=== PATIENT | female | born 2000 | race Caucasian/White ===

== ENCOUNTER 2022-02-22 21:41 | Inpatient (IN) ==
--- NOTE | 2022-02-22 21:47 | ED Triage Note ---
Date of Service February 22, 2022 History of Present Illness This patient was briefly evaluated while in triage. An abbreviated physical exam was performed. This patient is a 22-year-old Female with no significant past medical history who presents to the ED for evaluation of headache since Tuesday with N/V. No history of similar symptoms or migraines. Was drinking alcohol over the weekend. No trauma that she is aware of. Physical Exam VITALS: Vitals are noted on the nurse's note and reviewed by myself. GENERAL: This is a 22 year old white female, in no acute distress, nondiaphoretic, well-developed well-nourished. SKIN: No obvious rashes, edema, erythema HEAD: Normocephalic atraumatic. EYES: Conjunctivae without injection, sclerae without icterus. NECK: No JVD. LUNGS: No retractions or accessory muscle use. MUSCULOSKELETAL: Normal gait. NEURO: Patient was alert and oriented to person place and time. No focal neurological deficits. Initial orders for labs and / or imaging were placed and patient was placed in the waiting area until a bed is available. Please see further documentation for the full ED course.
[2022-02-22] MEDS ORDERED: SODIUM CHLORIDE 0.9% 1000ML 1,000 ML IV SCH (22:00)
[2022-02-22 22:23] LABS: Hemoglobin 14.4 g/dl (12.0-16.0); Mean Corpuscular Hemoglobin 29.5 pg (25.0-34.0); Mean Corpuscular Hgb Conc 33.5 g/dL (32.0-36.0); Mean Corpuscular Volume 88.1 fL (80.0-100.0); Mean Platelet Volume 9.3 fL (9.4-12.3); Platelet Count 430 K/uL (130-400); RDW Coefficient of Variation 12.3 % (11.5-14.5); RDW Standard Deviation 40.2 fL (36.4-46.3); Red Blood Count 4.88 M/uL (3.93-5.22); White Blood Count 25.38 K/ul (4.8-10.8)
[2022-02-22 22:37] LABS: INR 1.1 (0.9-1.1); Partial Thromboplastin Time 26.5 Seconds (21.0-31.0); Prothrombin Time 11.6 Seconds (9.0-12.0)
[2022-02-22 22:39] LABS: Basophils # (auto) 0.08 K/uL (0-0.2); Basophils % (auto) 0.3 %; Eosinophils # (auto) 0.04 K/uL (0-0.50); Eosinophils % (auto) 0.2 %; Immature Granulocytes # (auto) 0.12 K/uL (0.00-0.02); Immature Granulocytes % (auto) 0.5 %; Lymphocytes # (auto) 3.14 K/uL (1.2-3.4); Lymphocytes % (auto) 12.4 %; Monocytes # (auto) 1.89 K/uL (0.24-0.82); Monocytes % (auto) 7.4 %; Neutrophils # (auto) 20.11 K/uL (1.4-6.5); Neutrophils % (auto) 79.2 %
[2022-02-22 22:44] LABS: Albumin Globulin Ratio 1.2 (0.9-2); Albumin Level 4.5 gm/dl (3.4-5.0); BUN Creatinine Ratio 15.8 (10-20); Bilirubin,Total 0.8 mg/dl (0.2-1.0); Calcium 9.9 mg/dl (8.5-10.1); Creatinine Clr Calc Pharmacy 163.2 ml/min; Est GFR (African American) 129.1 ml/min; Est GFR (Non-African American) 111.3 ml/min; Globulin 3.9 gm/dl (2.5-4.0); Potassium 3.7 mmol/L (3.5-5.1); Total Protein 8.4 gm/dl (6.0-8.3)
[2022-02-22 22:53] LABS: Pregnancy Test, Serum Negative (Negative)
[2022-02-22] MEDS ORDERED: ONDANSETRON INJ 2 MG/ML 2 ML VIAL IV STA (23:03)
[2022-02-22] MEDS ORDERED: ONDANSETRON INJ 2 MG/ML 2 ML VIAL ONE (23:04)
[2022-02-23] MEDS ORDERED: diphenhydrAMINE 50 MG/ML VIAL IV STA (00:12)
[2022-02-23] MEDS ORDERED: METOCLOPRAMIDE HCL INJ 5 MG/ML 2 ML VIAL IV STA (00:12)
[2022-02-23] MEDS ORDERED: SODIUM CHLORIDE 0.9% 1000ML 500 ML IV ONE (00:13)
--- NOTE | 2022-02-23 00:14 | Emergency Department Note ---
Impression & Plan Headache ADMIT ED Provider Note HPI: The patient is a 22-year-old female with history of migraine headaches, who presents the emergency department chief complaint of headache. Patient states that she has had a headache since Tuesday morning, patient does admit to drinking alcohol Tuesday evening however she states that her headache pattern was unlike any that she had experienced previously. Patient states that she has had multiple episodes of vomiting over the past several days that seem to be intractable in nature. She states that she also developed a posterior headache today. On arrival here to the ED the patient is hemodynamically stable, she is afebrile, she is in mild distress secondary to headache and nausea on my initial assessment. She is alert and oriented x3 and she is saturating well on room air. ROS: -Neuro: Headache -GI: Nausea and vomiting *10 point review systems was conducted and is otherwise negative unless stated above *Outpatient medications and allergy history reviewed PE: General: Alert, obese HEENT: Normocephalic, atraumatic Eyes: Extraocular eye movement is intact, no scleral erythema Pulmonary: Clear to auscultation bilaterally, no wheezing Cardio: Regular rate and rhythm GI: Abdomen is soft, nontender : No suprapubic tenderness MSK: No evidence of trauma or malformation of the extremities, no edema Skin: No evidence of rash Neuro: Alert, no focal deficits Psychiatric: Cooperative ekg monitor: - An order was placed for continuous cardiac monitoring - Patient was noted to be in sinus rhythm with a rate of 80 CT HEAD: FINDINGS: No intracranial hemorrhage, abnormal intra- or extra-axial collections or parenchymal lesions are seen. The shape and configuration of the cortical sul ci, basal cisterns and ventricles are within normal limits. The michele-white differentiation is preserved. No evidence of mass effect, midline shift, or edema. The osseous structures are unremarkable. The visualized portions of the paranasal sinuses are clear. IMPRESSION: Normal non-contrast CT scan of the head. Radiologist: Ronnie Oliva MD Lumbar Puncture: -Verbal consent was obtained from the patient -Sterile technique utilized including gown, mask, and sterile gloves -Patient was placed in a seated position at the edge of the bed -L4/L5 interspace was identified, area was sterilely prepped with Betadine swabs, area was then draped in sterile fashion -Area at the L4/L5 interspace was anesthetized topically with 1% lidocaine without epinephrine, total of 5 cc were administered -Utilizing 20-gauge 3.5" needle, needle was gently advanced at the L4/L5 interspace, needle was retracted and clear CSF was obtained -4 tubes were filled with approximately 1 cc of CSF each, stylette was then placed back into the needle and needle was slowly retracted and removed entirely -Band-Aid was placed over the patient's wound, patient tolerated the procedure well Medical Decision Making: Shortly after patient arrived, protocol labs were ordered, patient was given IV fluids, lab work was reviewed and shows a significant leukocytosis greater than 25,000, blood cultures were ordered, patient was given IV fluids here in the ED as well as Reglan and Benadryl for headache. I did discuss with the patient following negative CT imaging of the head that lumbar puncture would be indicated given her significant leukocytosis with headache as well as nausea and vomiting. Patient was in agreement for lumbar puncture therefore this was performed at the bedside, CSF was obtained and sent for analysis, there is evidence of high white blood cell count, protein is also high, glucose is noted to be normal. Gram stain shows white blood cells but no identified organism. Meningitis PCR panel is largely negative. On my reassessment the patient continued to complain of headache therefore was given a dose of IV morphine, I did discuss with the patient that given her CSF findings prophylactic antibiotics would be ordered in addition to dexamethasone over concern for bacterial meningitis. Patient was started on ceftriaxone and vancomycin, she was given additional IV fluids here in the ED as well as pain medication. She remains alert and oriented x3 on my reevaluation but does appear to be uncomfortable still secondary to headache. Of note, COVID-19 testing was obtained and is negative. [facility] hospitalist service was consulted for admission, and the patient was admitted in stable condition for further care. Diagnosis: 1. Headache, acute 2. Nausea and vomiting 3. Leukocytosis 4. Abnormal CSF analysis Disposition: Admission Humberto Sumner DO Emergency Medicine Past Med/Surg History Medical History (Updated 02/23/22 @ 03:36 by Humberto Sumner DO) Migraines Social History Smoking Status: Never smoker Feels Safe at Home: Yes Allergies Allergies Allergy/AdvReac Type Severity Reaction Status Date / Time No Known Allergies Allergy Unverified 03/23/19 12:36 Results & Data (ED) Vital Signs Vital Signs - 24 hr 02/22/22 21:46 02/22/22 23:07 02/22/22 23:51 Temperature 36.2 C L Temperature Source Temporal Artery Scan Pulse Rate 88 87 Pulse Rate [Right Finger] 80 Pulse Rhythm Regular Pulse Rhythm [Right Finger] Pulse Strength [Right Finger] Respiratory Rate 16 20 16 Respiratory Effort / Characteristics Respiratory Depth Respiratory Pattern Blood Pressure 141/95 H Blood Pressure [Right Arm] 118/72 Blood Pressure Mean 110 Blood Pressure Mean [Right Arm] 87 Blood Pressure Position [Right Arm] Right Lateral Pulse Oximetry 99 98 98 Oxygen Delivery Method Room Air Room Air Sepsis Recent Fever Within 48 Hours No Sepsis New/Unexplained Change in Mental Status No Sepsis Action Taken by Nursing No Action Required 02/23/22 01:00 02/23/22 02:00 02/23/22 02:34 Temperature 36.9 C 37.0 C Temperature Source Oral Oral Pulse Rate Pulse Rate [Right Finger] 88 84 84 Pulse Rhythm Pulse Rhythm [Right Finger] Regular Regular Regular Pulse Strength [Right Finger] Normal Normal Normal Respiratory Rate 16 16 16 Respiratory Effort / Characteristics Non-Labored Respiratory Depth Normal Normal Respiratory Pattern Blood Pressure Blood Pressure [Right Arm] 121/73 136/81 131/74 Blood Pressure Mean Blood Pressure Mean [Right Arm] 89 99 93 Blood Pressure Position [Right Arm] Pulse Oximetry 99 98 Oxygen Delivery Method Room Air Room Air Sepsis Recent Fever Within 48 Hours Sepsis New/Unexplained Change in Mental Status Sepsis Action Taken by Nursing 02/23/22 03:23 Temperature Temperature Source Pulse Rate Pulse Rate [Right Finger] 84 Pulse Rhythm Pulse Rhythm [Right Finger] Regular Pulse Strength [Right Finger] Respiratory Rate 16 Respiratory Effort / Characteristics Non-Labored Respiratory Depth Normal Respiratory Pattern Regular Blood Pressure Blood Pressure [Right Arm] 126/66 Blood Pressure Mean Blood Pressure Mean [Right Arm] 86 Blood Pressure Position [Right Arm] Pulse Oximetry 96 Oxygen Delivery Method Room Air Sepsis Recent Fever Within 48 Hours Sepsis New/Unexplained Change in Mental Status Sepsis Action Taken by Nursing Laboratory Data Result diagrams: 02/22/22 22:13 02/22/22 22:13 Lab Results 02/22/22 02/22/22 02/22/22 Range/Units 22:13 22:13 22:13 WBC 25.38 H (4.8-10.8) K/ul RBC 4.88 (3.93-5.22) M/uL Hgb 14.4 (12.0-16.0) g/dl Hct 43.0 (34.1-44.9) % MCV 88.1 (80.0-100.0) fL MCH 29.5 (25.0-34.0) pg MCHC 33.5 (32.0-36.0) g/dL RDW Std Deviation 40.2 (36.4-46.3) fL RDW Coeff of Hilaria 12.3 (11.5-14.5) % Plt Count 430 H (130-400) K/uL MPV 9.3 L (9.4-12.3) fL Immature Gran % (Auto) 0.5 % Neut % (Auto) 79.2 % Lymph % (Auto) 12.4 % [place] % (Auto) 7.4 % Eos % (Auto) 0.2 % Baso % (Auto) 0.3 % Neut # (Auto) 20.11 H (1.4-6.5) K/uL Lymph # (Auto) 3.14 (1.2-3.4) K/uL [place] # (Auto) 1.89 H (0.24-0.82) K/uL Eos # (Auto) 0.04 (0-0.50) K/uL Baso # (Auto) 0.08 (0-0.2) K/uL Immature Gran # (Auto) 0.12 H (0.00-0.02) K/uL PT 11.6 (9.0-12.0) Seconds INR 1.1 (0.9-1.1) APTT 26.5 (21.0-31.0) Seconds PTT Ratio 1.0 Sodium 136 (136-145) mmol/L Potassium 3.7 (3.5-5.1) mmol/L Chloride 101 (98-107) mmol/L Carbon Dioxide 27 (21-32) mmol/L Anion Gap 8 (3-11) BUN 12 (6-23) mg/dl Creatinine 0.76 (0.6-1.2) mg/dl Est Cr Clr Drug Dosing 163.2 ml/min Est GFR ( Amer) 129.1 ml/min Est GFR (Non-Af Amer) 111.3 ml/min BUN/Creatinine Ratio 15.8 (10-20) Glucose 109 H (70-99(Fasting)) mg/dl Calcium 9.9 (8.5-10.1) mg/dl Total Bilirubin 0.8 (0.2-1.0) mg/dl AST 12 L (13-39) U/L ALT 13 (7-52) U/L Alkaline Phosphatase 98 (34-104) U/L Total Protein 8.4 H (6.0-8.3) gm/dl Albumin 4.5 (3.4-5.0) gm/dl Globulin 3.9 (2.5-4.0) gm/dl Albumin/Globulin Ratio 1.2 (0.9-2) HCG, Qual (Negative) Fluid Comment CSF Appearance CSF Color Xanthrochromic CSF WBC (0-5) /uL CSF RBC (0-) /uL CSF Cell Count Tube # CSF Mononuclear WBCs % % CSF Polynuclear WBCs % % CSF Chemistry Tube # CSF Glucose (40-70) mg/dl CSF Total Protein (15-45) mg/dl CSF C.neoform/gat PCR (NotDetected) CSF CMV DNA (PCR) (NotDetected) CSF Enterovirus (PCR) (NotDetected) CSF E. coli K1 (PCR) (NotDetected) CSF H. influenzae (PCR) (NotDetected) CSF HSV I (PCR) (NotDetected) CSF HSV II (PCR) (NotDetected) CSF HHV 6 (PCR) (NotDetected) CSF L.monocytogenes PCR (NotDetected) CSF N. meningitidis PCR (NotDetected) CSF Parechovirus (PCR) (NotDetected) CSF S. agalactiae (PCR) (NotDetected) CSF S. pneumoniae (PCR) (NotDetected) CSF VZV DNA (PCR) (NotDetected) SARS-CoV-2 (PCR) (Negative) Influenza Type A (PCR) (Neg) Influenza Type B (PCR) (Neg) RSV (RT-PCR) (Neg) 02/22/22 02/23/22 02/23/22 Range/Units 22:13 01:00 01:00 WBC (4.8-10.8) K/ul RBC (3.93-5.22) M/uL Hgb (12.0-16.0) g/dl Hct (34.1-44.9) % MCV (80.0-100.0) fL MCH (25.0-34.0) pg MCHC (32.0-36.0) g/dL RDW Std Deviation (36.4-46.3) fL RDW Coeff of Hilaria (11.5-14.5) % Plt Count (130-400) K/uL MPV (9.4-12.3) fL Immature Gran % (Auto) % Neut % (Auto) % Lymph % (Auto) % [place] % (Auto) % Eos % (Auto) % Baso % (Auto) % Neut # (Auto) (1.4-6.5) K/uL Lymph # (Auto) (1.2-3.4) K/uL [place] # (Auto) (0.24-0.82) K/uL Eos # (Auto) (0-0.50) K/uL Baso # (Auto) (0-0.2) K/uL Immature Gran # (Auto) (0.00-0.02) K/uL PT (9.0-12.0) Seconds INR (0.9-1.1) APTT (21.0-31.0) Seconds PTT Ratio Sodium (136-145) mmol/L Potassium (3.5-5.1) mmol/L Chloride (98-107) mmol/L Carbon Dioxide (21-32) mmol/L Anion Gap (3-11) BUN (6-23) mg/dl Creatinine (0.6-1.2) mg/dl Est Cr Clr Drug Dosing ml/min Est GFR ( Amer) ml/min Est GFR (Non-Af Amer) ml/min BUN/Creatinine Ratio (10-20) Glucose (70-99(Fasting)) mg/dl Calcium (8.5-10.1) mg/dl Total Bilirubin (0.2-1.0) mg/dl AST (13-39) U/L ALT (7-52) U/L Alkaline Phosphatase (34-104) U/L Total Protein (6.0-8.3) gm/dl Albumin (3.4-5.0) gm/dl Globulin (2.5-4.0) gm/dl Albumin/Globulin Ratio (0.9-2) HCG, Qual Negative (Negative) Fluid Comment CSF Appearance CSF Color Xanthrochromic CSF WBC (0-5) /uL CSF RBC (0-) /uL CSF Cell Count Tube # CSF Mononuclear WBCs % % CSF Polynuclear WBCs % % CSF Chemistry Tube # 1 CSF Glucose 66 (40-70) mg/dl CSF Total Protein 66.3 H (15-45) mg/dl CSF C.neoform/gat PCR Not Detected (NotDetected) CSF CMV DNA (PCR) Not Detected (NotDetected) CSF Enterovirus (PCR) Not Detected (NotDetected) CSF E. coli K1 (PCR) Not Detected (NotDetected) CSF H. influenzae (PCR) Not Detected (NotDetected) CSF HSV I (PCR) Not Detected (NotDetected) CSF HSV II (PCR) Not Detected (NotDetected) CSF HHV 6 (PCR) Not Detected (NotDetected) CSF L.monocytogenes PCR Not Detected (NotDetected) CSF N. meningitidis PCR Not Detected (NotDetected) CSF Parechovirus (PCR) Not Detected (NotDetected) CSF S. agalactiae (PCR) Not Detected (NotDetected) CSF S. pneumoniae (PCR) Not Detected (NotDetected) CSF VZV DNA (PCR) Not Detected (NotDetected) SARS-CoV-2 (PCR) (Negative) Influenza Type A (PCR) (Neg) Influenza Type B (PCR) (Neg) RSV (RT-PCR) (Neg) 02/23/22 02/23/22 Range/Units 01:00 Unknown WBC (4.8-10.8) K/ul RBC (3.93-5.22) M/uL Hgb (12.0-16.0) g/dl Hct (34.1-44.9) % MCV (80.0-100.0) fL MCH (25.0-34.0) pg MCHC (32.0-36.0) g/dL RDW Std Deviation (36.4-46.3) fL RDW Coeff of Hilaria (11.5-14.5) % Plt Count (130-400) K/uL MPV (9.4-12.3) fL Immature Gran % (Auto) % Neut % (Auto) % Lymph % (Auto) % [place] % (Auto) % Eos % (Auto) % Baso % (Auto) % Neut # (Auto) (1.4-6.5) K/uL Lymph # (Auto) (1.2-3.4) K/uL [place] # (Auto) (0.24-0.82) K/uL Eos # (Auto) (0-0.50) K/uL Baso # (Auto) (0-0.2) K/uL Immature Gran # (Auto) (0.00-0.02) K/uL PT (9.0-12.0) Seconds INR (0.9-1.1) APTT (21.0-31.0) Seconds PTT Ratio Sodium (136-145) mmol/L Potassium (3.5-5.1) mmol/L Chloride (98-107) mmol/L Carbon Dioxide (21-32) mmol/L Anion Gap (3-11) BUN (6-23) mg/dl Creatinine (0.6-1.2) mg/dl Est Cr Clr Drug Dosing ml/min Est GFR ( Amer) ml/min Est GFR (Non-Af Amer) ml/min BUN/Creatinine Ratio (10-20) Glucose (70-99(Fasting)) mg/dl Calcium (8.5-10.1) mg/dl Total Bilirubin (0.2-1.0) mg/dl AST (13-39) U/L ALT (7-52) U/L Alkaline Phosphatase (34-104) U/L Total Protein (6.0-8.3) gm/dl Albumin (3.4-5.0) gm/dl Globulin (2.5-4.0) gm/dl Albumin/Globulin Ratio (0.9-2) HCG, Qual (Negative) Fluid Comment CSF Appearance Clear CSF Color Colorless Xanthrochromic No xanthochromia CSF WBC 150 H* (0-5) /uL CSF RBC 0 (0-) /uL CSF Cell Count Tube # 3 CSF Mononuclear WBCs % 40.0 % CSF Polynuclear WBCs % 60.0 % CSF Chemistry Tube # CSF Glucose (40-70) mg/dl CSF Total Protein (15-45) mg/dl CSF C.neoform/gat PCR (NotDetected) CSF CMV DNA (PCR) (NotDetected) CSF Enterovirus (PCR) (NotDetected) CSF E. coli K1 (PCR) (NotDetected) CSF H. influenzae (PCR) (NotDetected) CSF HSV I (PCR) (NotDetected) CSF HSV II (PCR) (NotDetected) CSF HHV 6 (PCR) (NotDetected) CSF L.monocytogenes PCR (NotDetected) CSF N. meningitidis PCR (NotDetected) CSF Parechovirus (PCR) (NotDetected) CSF S. agalactiae (PCR) (NotDetected) CSF S. pneumoniae (PCR) (NotDetected) CSF VZV DNA (PCR) (NotDetected) SARS-CoV-2 (PCR) NEGATIVE (Negative) Influenza Type A (PCR) Negative (Neg) Influenza Type B (PCR) Negative (Neg) RSV (RT-PCR) Negative (Neg) Administered Medications Discontinued Medications Dexamethasone Sodium Phosphate (DexamethasonePf 10 Mg/Ml Vial) 10 mg IV NOW ONE Stop: 02/23/22 02:49 Last Admin: 02/23/22 03:14 Dose: 10 mg Documented By: JEOVANY Diphenhydramine HCl (Diphenhydramine 50 Mg/Ml Vial) 25 mg IV NOW STA Stop: 02/23/22 00:13 Last Admin: 02/23/22 00:28 Dose: 25 mg Documented By: JEOVANY Sodium Chloride (Nss 1000ml) 1,000 mls @ 999 mls/hr IV .Q1H1M STEPHANI Stop: 02/22/22 23:00 Last Infusion: 02/23/22 02:12 Dose: 0 mls/hr Documented By: Admin: 02/22/22 22:55 Dose: 999 mls/hr Documented By: SAGAR Sodium Chloride (Nss 1000ml) 500 mls @ 999 mls/hr IV .Q31M ONE Stop: 02/23/22 00:43 Last Infusion: 02/23/22 02:12 Dose: 0 mls/hr Documented By: Admin: 02/23/22 00:30 Dose: 999 mls/hr Documented By: JEOVANY Ceftriaxone Sodium (Rocephin) 2,000 mg in 70 mls @ 140 mls/hr IV NOW STA Stop: 02/23/22 03:14 Last Admin: 02/23/22 02:56 Dose: 140 mls/hr Documented By: JEOVANY Lidocaine HCl (Lidocaine 1% Local 20 Ml Vial) Confirm Administered Dose 20 ml .ROUTE .STK-MED ONE Stop: 02/23/22 00:54 Last Admin: 02/23/22 01:49 Dose: 20 ml Documented By: JEOVANY Lorazepam (Lorazepam 2 Mg/1 Ml Vial) 1 mg IV NOW STA; Protocol Stop: 02/23/22 00:33 Last Admin: 02/23/22 00:36 Dose: 1 mg Documented By: JEOVANY Lorazepam (Lorazepam 2 Mg/1 Ml Vial) Confirm Administered Dose 1 mg .ROUTE .STK- MED ONE Stop: 02/23/22 00:34 Last Admin: 02/23/22 01:49 Dose: Not Given Documented By: JEOVANY Metoclopramide HCl (Metoclopramide Hcl Inj 5 Mg/Ml 2 Ml Vial) 10 mg IV NOW STA Stop: 02/23/22 00:13 Last Admin: 02/23/22 00:28 Dose: 10 mg Documented By: JEOVANY Ondansetron HCl (Ondansetron Inj 2 Mg/Ml 2 Ml Vial) 4 mg IV NOW STA Stop: 02/22/22 23:04 Last Admin: 02/22/22 23:07 Dose: 4 mg Documented By: SAGAR Ondansetron HCl (Ondansetron Inj 2 Mg/Ml 2 Ml Vial) Confirm Administered Dose 4 mg .ROUTE .STK-MED ONE Stop: 02/22/22 23:05 Last Admin: 02/22/22 23:07 Dose: Not Given Documented By: SAGAR Discharge Plan Visit Data Chief Complaint: Headache Stated Complaint: MIGRAINE, VOMITING, DIZZINESS, VISION ISSUES ED Provider: Humberto Sumner Discharge Problem: Headache Patient Disposition: Admitted As Inpatient Condition: Good Forms Stand Alone Forms: [facility] Emergency Department, Important Visit Information Referrals Referrals: PCP,NO [Primary Care Provider] -
[2022-02-23] MEDS ORDERED: LORazepam 2 MG/2 ML SYR IV STA (00:32)
[2022-02-23] MEDS ORDERED: LORazepam 2 MG/2 ML SYR ONE (00:33)
[2022-02-23] MEDS ORDERED: LIDOCAINE 1% LOCAL 20 ML VIAL ONE (00:53)
[2022-02-23 01:05] LABS: Influenza A virus by PCR Negative (Neg); Influenza B virus by PCR Negative (Neg); RSV by PCR Negative (Neg); SARS CoV2 RNA(COVID-19) InHosp NEGATIVE (Negative)
[2022-02-23 02:05] LABS: Total Protein CSF 66.3 mg/dl (15-45)
[2022-02-23 02:20] LABS: Appearance CSF Clear; CSF Count Tube # 3; Color CSF Colorless
[2022-02-23 02:21] LABS: CSF Xanthrochromic No xanthochromia; Red Blood Cell CSF (A) 0 /uL (0-)
[2022-02-23 02:22] LABS: White Blood Cell CSF (A) 150 /uL (0-5)
[2022-02-23] MEDS ORDERED: VANCOMYCIN HCL 2,500 MG in SODIUM CHLORIDE 0.9% 500 ML IV ONE (02:45)
[2022-02-23] MEDS ORDERED: VANCOMYCIN CONSULT ACTIVE PRN (02:45)
[2022-02-23] MEDS ORDERED: cefTRIAXone SODIUM 2,000 MG/70 ML BAG IV STA (02:45)
[2022-02-23] MEDS ORDERED: dexAMETHasone**PF** 10 MG/ML VIAL IV ONE (02:48)
[2022-02-23 03:16] LABS: Cryptococcus neoformans/ga PCR Not Detected (NotDetected); Cytomegalovirus PCR Not Detected (NotDetected); Enterovirus PCR Not Detected (NotDetected); Escherichia coli K1 PCR Not Detected (NotDetected); Haemophilius influenzae PCR Not Detected (NotDetected); Herpes Simplex Virus 1 PCR Not Detected (NotDetected); Herpes Simplex Virus 2 PCR Not Detected (NotDetected); Human Herpes Virus 6 PCR Not Detected (NotDetected); Human Parechovirus PCR Not Detected (NotDetected); Listeria monocytogenes PCR Not Detected (NotDetected); Neisseria meningitidis PCR Not Detected (NotDetected); Streptococcus agalactiae PCR Not Detected (NotDetected); Streptococcus pneumoniae PCR Not Detected (NotDetected); Varicella Zoster Virus PCR Not Detected (NotDetected)
[2022-02-23] MEDS ORDERED: MoRPHine SULFATE 4 MG/ML 1 ML CARP\\VIAL IV STA (03:23)
--- NOTE | 2022-02-23 03:49 | History & Physical Report ---
Date of Service February 23, 2022 Assessment & Plan (1) Headache: Plan: This is a 22-year-old female with a history of who presented to [facility] for evaluation of severe headache, nuchal rigidity, recurrent nausea with vomiting, and chills in the setting of recently reported sinus infection, with serum and CSF studies concerning for aseptic meningitis. Suspected Meningitis - Patient reporting approx. 3 days worth of worsening severe headache with intractable nausea and vomiting, nuchal rigidity, and chills following a recent self-reported sinus infection - Work-up as follows: - Leukocytosis to 25 with L shift and monocytosis - CSF: Clear/Colorless/WBC 150 (40/60 mono:PMNs)/Glc nml 66/TP 66.3/BioFire negative (Lyme studies pending) - COVID/RSV/Influenza: Negative - Head CT (STAT-Rad): No acute processes - await final read - BCX, CSF-Cx, Procal - pending - Patient reports negative STI panel at [facility]; she will look into getting files on her phone - Clinical picture is concerning and most consistent with aseptic meningitis - likely viral in nature. No recent symptoms to suggest rheumatologic, medication- induced, parameningeal alternative source -- though noted patient had similar episode of this last year. Given serologies, lower suspicion for migraine headache as central etiology, but considered. Dural venous sinus thrombosis considered given IUD, though seems less likely. - Given clinical appearance and significant symptoms, however: - Will empirically cover bacterial with CFTX, vancomycin, dexamethasone 10mg q6h for now - Continue acyclovir for now - Await CSF-Cx, BCx as above - Pain: Tylenol 1000mg q8h STEPHANI, Toradol 16mg q6h PRN, diphenhydramine 25mg PRN (headache pain) - Nausea: Zofran - can consider Compazine - NSS x 1L - Consider further imaging (MRI, MRV) and rheumatologic testing if clinical picture remains unclear (2) Alcohol use: Plan: - Will require further history and possibly counselling on decreasing intake given heavy use over last several days (3) Tobacco use: Plan: - Vaping cessation counselling will be required once acute issues are resolved Plan Code: Full Diet: Regular as tolerated PPX: SCDs Dispo: MS for now - upgrade to MS/T+ if clinical status is worsening History of Present Illness Primary Care Provider: NO PCP This is a 22-year-old female with a history of who presented to [facility] for evaluation of headache and nausea. Patient reports that last week, she did have sinus symptoms that were primarily tender on the left sideshe reports having these every single year, and they typically resolve on their own. Patient reports that beginning on Tuesday of last week (~4 days ago) she went out downtown and consumed a significant amount of alcohol. The following day, she reports consuming consistent amounts of alcohol for about a 12-hour period, but she notes that she did not get intoxicated. The following morning (2 days ago) she reports waking up with a pounding, sharp headache that extended from the front to the back of her head and down her neck. She says she has had 1 headache like this in the past, but never this severe. As the day went on, she progressively began developing worsening nausea with vomiting. She felt like she was unable to keep anything down. She denies any diplopia or visual symptoms. She denies any numbness or tingling's in her upper or lower extremities, denies any weakness. She did try taking Tylenol and acetaminophen without any relief. Because her symptoms continued onward through today, she did decide to come into the ER to be evaluated. She does report intermittent chills over the last couple days, but denies any objective fevers. She denies any muscle aches. She denies any medical conditions. She denies any daily medications. She does have a Kyleena IUD. She is sexually active and endorses a history of Chlamydia infection treated last year. She said she was tested for all STIs, including blood tests, a month ago at [facility]. She has no partners since. Denies genital lesions. She does endorse vaping frequently. Alcohol use as above. Denies any use of recreational drugs. Upon arrival, patient was found to be mildly hypertensive to 141/95 with otherwise normal vital signs. Admission labs demonstrated a white count to 25.4 with appreciable left shift and mild monocytosis, thrombocytosis 430, normal BMP, total protein 8.4. CT-Head STAT-Rad: "Normal non-contrast CT scan of the head." Given ongoing concerns for meningitis, CSF sample was obtained. CSF was clear and colorless without xanthochromia. Leukocytosis to 150 with 40/60 mononuclear:PMN differentiation was found in the CSF with normal glucose. Total protein elevated 66.3. CSF bio fire was negative. CSF Lyme studies are pending. Patient's respiratory swabs revealed negative COVID, influenza, and RSV. Blood cultures and CSF cultures are pending. She was given sodium chloride, obtain sertraline, metoclopramide, diphenhydramine, lorazepam, ceftriaxone, dexamethasone, morphine, and vancomycin. Allergies Allergy/AdvReac Type Severity Reaction Status Date / Time No Known Allergies Allergy Unverified 02/23/22 15:12 Home Medications Medication Instructions Recorded Confirmed Type No Known Home Medications 02/23/22 02/23/22 History Past Med/Surg History Medical History (Updated 02/23/22 @ 03:36 by Humberto Sumner DO) Migraines Social History Smoking Status: Never smoker Second Hand Exposure: No; Do You Dip or Chew Tobacco: No; Tobacco Cessation Education Requested by Patient: No Hx Alcohol Use: Yes Alcohol type: beer Hx Substance Use: No Preferred Language: Paragu[place] Communication Ability: Effective 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 HEENT: NCAT. - Eyes - Sclera are white, anicteric, and without injection. - Mouth - MMM - Neck - supple, no appreciable JVD Cardiac: Normal rate and regular rhythm; S1 and S2 present with no murmurs, r ubs, or gallops. Pulmonary: Good respiratory effort with symmetric expansion of the chest. No use of accessory muscles. Lungs were clear to auscultation bilaterally with no c rackles or wheezes. Abdominal: Normoactive bowel sounds. Abdomen was soft, nondistended, and non- tender to palpation. Extremities: Upper and lower extremities are warm and well perfused. No peripheral edema in the lower extremities bilaterally Neuro: - Cranial Nerves: CN I, IX, XIII, and X - not assessed. II - PERRL. III/IV/ - EOMs WNL. No nystagmus. V - Facial sensation in tact in all three divisions; jaw opening WNL. VII - Patient is able to smile symmetrically and keep eyes close against resistance. IX - Soft palate raises equally and appropriately while saying "ah." XI - Patient is able to shrug shoulders against resistance. XII - patient is able to stick out tongue and deviate from [id number] appropriately. - Motor: UE - Finger, wrist, elbow, and shoulder strength is 5/5 bilaterally. LE - Hip, knee, and ankle strength is 5/5 bilaterally. - Sensation: UE and LE sensation to light touch is grossly intact bilaterally. - [id number]: WNL b/l. No dysmetria. - [id number]; WNL b/l. Psych: Well-developed, well-nourished, appropriately dressed for occasion. Behavior is cooperative and appropriate. Affect is WNL. Insight is appropriate. Results & Data Results & Data ([facility]) Vital Signs (Past 12 Hours) Vital Signs Temp Pulse Pulse Resp BP BP Pulse Ox 02/23/22 03:23 84 16 126/66 96 02/23/22 02:34 37.0 C 84 16 131/74 98 02/23/22 02:00 84 16 136/81 02/23/22 01:00 36.9 C 88 16 121/73 99 02/22/22 23:51 87 16 98 02/22/22 23:07 80 20 118/72 98 02/22/22 21:46 36.2 C L 88 16 141/95 H 99 O2 Del Method 02/23/22 03:23 Room Air 02/23/22 02:34 Room Air 02/23/22 02:00 02/23/22 01:00 Room Air 02/22/22 23:51 Room Air 02/22/22 23:07 02/22/22 21:46 Room Air Supervising Physician Co-Signing Physician Notes Attending addendum: I have physically seen this patient, have supervised the medical residents activities, and agree with the H&P unless as otherwise noted. Assessment and Plan: Meningitis/severe headache- COVID-19/RSV/influenza AMB negative CT head without contrast negative LP clear/colorless/WBC 150 with 40% monocytes and 60% PMNs/glucose 66 Vancomycin IV per pharmacokinetic monitoring Ceftriaxone 2 g IV every 12 hours 10 mg IV in the ED then 6 mg IV every 6 hours Acyclovir IV Continue until cultures completed Tylenol and Toradol IV as noted NSS x1 L Tobacco use disorder/vaping use- Cessation counseling advised Remaining orders and notations as noted Resident Activity Tracking Resident Involvement: Resident Care Provided Care Provided: Adult Hospital Medicine (1) Headache Headache chronicity pattern: acute headache Headache type: unspecified Intractability: intractable Qualified Code(s): R51.9 - Headache, unspecified
[2022-02-23] MEDS ORDERED: ACETAMINOPHEN 325 MG TAB PO PRN (04:19)
[2022-02-23] MEDS ORDERED: diphenhydrAMINE 50 MG/ML VIAL IV PRN (06:12)
[2022-02-23] MEDS ORDERED: SODIUM CHLORIDE 0.9% 1000ML 1,000 ML IV SCH (06:12)
[2022-02-23] MEDS ORDERED: DEXAMETHASONE SOD INJ 4 MG/ML VIAL IV SCH (07:00)
[2022-02-23] MEDS: ACETAMINOPHEN 500 MG TAB PO SCH ×2 (08:03→08:12)
[2022-02-23] MEDS: ACYCLOVIR SOD 900 MG in DEXTROSE 5% 250 ML IV SCH ×2 (08:03→16:03)
[2022-02-23] MEDS ORDERED: ACETAMINOPHEN 1,000 MG/100 ML VIAL IV PRN (08:15)
[2022-02-23] MEDS: dexAMETHasone 10 MG in SYRINGE 0 ML IV SCH ×3 (08:20→20:44)
[2022-02-23] MEDS: cefTRIAXone SODIUM 2,000 MG in DEXTROSE 5% 50 ML IV SCH ×2 (09:07→16:21)
--- NOTE | 2022-02-23 09:35 | CT Scan Report ---
CT OF THE HEAD WITHOUT CONTRAST CLINICAL HISTORY: Headache. COMPARISON STUDY: No previous studies for comparison. CT DOSE: 537.48 mGy.cm TECHNIQUE: Helical axial images of the head were obtained without IV contrast. Automated exposure con trol was utilized for the study. A dose lowering technique was utilized adhering to the principles o f ALARA. FINDINGS: No acute intracranial hemorrhage, midline shift or mass effect is present. The ventricular system is unremarkable. The basal cisterns are patent. No extra-axial collections are present. There are no findings to suggest acute dural sinus thrombosis or acute territorial infarct. No significant calvarial abnormalities are present. Visualized portions of the sinuses and mastoid air cells are silvano ar. 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 IMPRESSION: No acute intracranial findings. ACT 112: Negative or not required by law. Electronically signed by: Kenneth Moeller M.D. 02/23/2022 9:33 AM
[2022-02-23] MEDS: VANCOMYCIN HCL 1,500 MG in SODIUM CHLORIDE 0.9% 500 ML IV SCH (10:10)
--- NOTE | 2022-02-23 11:13 | Pharmacy Report ---
Pharmacy PK ABX Note - Date of Service February 23, 2022 - Assessment and Plan Assessment 22 year old F receiving IV vancomycin, ceftriaxone, and acyclovir for treatment of ACCOUNTS OFFICER infection. Blood and CSF cultures pending. Renal function stable. Day #1 of antimicrobial therapy. Plan Vancomycin * Loading dose: 2500 mg IV x 1 * Maintenance dose: 1500 mg IV every 12 hours * Regimen is predicted to achieve target AUC/MICHELLE of 400-600 mg/L.hr * Will obtain a trough/random level tomorrow if therapy continues Pharmacy will continue to follow and will adjust dose/frequency as necessary. Thank you. Pharmacy has transitioned to AUC monitoring for vancomycin. AUC/MICHELLE is the preferred PK/PD target and is associated with decreased risk of nephrotoxicity compared to traditional trough targets.
[2022-02-23] MEDS: ONDANSETRON INJ 2 MG/ML 2 ML VIAL IV PRN ×2 (14:08→22:05)
[2022-02-23] MEDS ORDERED: GADOBUTROL 65ML VIAL IV ONE (14:46)
--- NOTE | 2022-02-23 15:12 | Magnetic Resonance Report ---
MRI OF THE BRAIN WITHOUT IV CONTRAST CLINICAL HISTORY: Headache. Suspected meningitis. COMPARISON STUDY: CT of the brain dated 02/22/2022. TECHNIQUE: MRI of the brain was performed utilizing various T1 and T2-weighted sequences in the axial , sagittal, and coronal planes. IV contrast was not administered for this examination. The patient de clined further imaging and contrast-enhanced sequences were not obtained. The acquired sequences are mildly degraded by motion artifact. FINDINGS: Brain parenchyma: The brain parenchyma is normal in appearance. There is no hemorrhage or mass effect . There is no restricted diffusion to suggest acute ischemia. Hough-white matter differentiation is pr eserved. No extra-axial fluid collection is seen. The cerebellar tonsils are normal in configuration. Ventricles, sulci, and cisterns: Normal in configuration. Pituitary and sella: Unremarkable. Intracranial vasculature: Normal flow voids are maintained at the skull base. Orbits: The bony orbits are grossly intact. Orbital contents are normal in appearance. Sinuses and mastoids: Clear. Calvarium: Unremarkable. Cervical cord: Partially visualized cervical spinal cord is normal in morphology and signal intensity . IMPRESSION: No acute intracranial abnormality is identified on this unenhanced examination. ACT 112: Negative or not required by law. Electronically signed by: Randal Russell M.D. 02/23/2022 3:09 PM
[2022-02-23] MEDS: KETOROLAC TROMETHAMINE 15 MG/ML VIAL IV PRN ×2 (16:20→22:14)
--- NOTE | 2022-02-23 23:11 | Billing Data ---
Date of Service February 23, 2022 Coding Level of Care Code 22969 Initial Inpt Care Lvl 3
[2022-02-24] MEDS: VANCOMYCIN HCL 1,500 MG in SODIUM CHLORIDE 0.9% 500 ML IV SCH ×2 (00:11→10:37)
[2022-02-24] MEDS: ACYCLOVIR SOD 900 MG in DEXTROSE 5% 250 ML IV SCH ×4 (00:37→23:58)
[2022-02-24] MEDS: cefTRIAXone SODIUM 2,000 MG in DEXTROSE 5% 50 ML IV SCH ×2 (03:03→14:42)
[2022-02-24] MEDS: dexAMETHasone 10 MG in SYRINGE 0 ML IV SCH ×4 (03:04→20:16)
[2022-02-24] MEDS: KETOROLAC TROMETHAMINE 15 MG/ML VIAL IV PRN (07:38)
[2022-02-24 07:48] LABS: Hematocrit (blood only) 36.1 % (34.1-44.9); Hemoglobin 12.1 g/dl (12.0-16.0); Mean Corpuscular Hemoglobin 29.1 pg (25.0-34.0); Mean Corpuscular Hgb Conc 33.5 g/dL (32.0-36.0); Mean Corpuscular Volume 86.8 fL (80.0-100.0); Mean Platelet Volume 9.8 fL (9.4-12.3); Platelet Count 374 K/uL (130-400); RDW Coefficient of Variation 12.3 % (11.5-14.5); RDW Standard Deviation 39.3 fL (36.4-46.3); Red Blood Count 4.16 M/uL (3.93-5.22); White Blood Count 28.26 K/ul (4.8-10.8)
[2022-02-24 08:23] LABS: Basophils # (auto) 0.04 K/uL (0-0.2); Basophils % (auto) 0.1 %; Immature Granulocytes # (auto) 0.29 K/uL (0.00-0.02); Lymphocytes # (auto) 1.36 K/uL (1.2-3.4); Lymphocytes % (auto) 4.8 %; Monocytes # (auto) 0.54 K/uL (0.24-0.82); Monocytes % (auto) 1.9 %; Neutrophils # (auto) 26.03 K/uL (1.4-6.5); Neutrophils % (auto) 92.2 %; RBC Morphology Unremarkable
[2022-02-24 08:27] LABS: Albumin Globulin Ratio 1.1 (0.9-2); Albumin Level 3.6 gm/dl (3.4-5.0); BUN Creatinine Ratio 15.9 (10-20); Bilirubin,Total 0.3 mg/dl (0.2-1.0); Calcium 9.1 mg/dl (8.5-10.1); Creatinine Clr Calc Pharmacy 113.7 ml/min; Est GFR (African American) 85.3 ml/min; Est GFR (Non-African American) 73.6 ml/min; Globulin 3.2 gm/dl (2.5-4.0); Potassium 3.6 mmol/L (3.5-5.1); Total Protein 6.8 gm/dl (6.0-8.3)
[2022-02-24] MEDS: ONDANSETRON INJ 2 MG/ML 2 ML VIAL IV PRN (12:32)
--- NOTE | 2022-02-24 13:11 | Hospitalist Progress Note ---
Date of Service February 24, 2022 Assessment & Plan (1) Headache: Plan: This is a 22-year-old female with a history of who presented to [facility] for evaluation of severe headache, nuchal rigidity, recurrent nausea with vomiting, and chills in the setting of recently reported sinus infection, with serum and CSF studies concerning for aseptic meningitis. Suspected Meningitis - Patient reporting approx. 3 days of worsening severe headache with intractable nausea and vomiting, nuchal rigidity, and chills following a recent self-reported sinus infection -Likely aseptic meningitis, likely viral - Work-up as follows: - Leukocytosis to 25 with L shift and monocytosis - CSF: Clear/Colorless/WBC 150 (40/60 mono:PMNs)/Glc nml 66/TP 66.3/BioFire negative (Lyme studies pending) - COVID/RSV/Influenza: Negative - Head CT (STAT-Rad): No acute processes - BCX, CSF-Cx, negative so far - Clinical picture is concerning and most consistent with aseptic meningitis - likely viral in nature. -Will rule out Dural venous sinus thrombosis with MRI brain (Patient was unable to complete her series yesterday) - Will continue empirically continue CFTX, vancomycin, Acyclovir, dexamethasone 10mg q6h for now - Pain: Tylenol 1000mg q8h STEPHANI, Toradol 16mg q6h PRN, diphenhydramine 25mg PRN (headache pain) - Nausea: Zofran - can consider Compazine - NSS x 1L - Await ID recommendations (2) Alcohol use: Plan: - counselled on ETOH (3) Tobacco use: Plan: - Vaping cessation counselling will be required once acute issues are resolved Plan Code: Full Diet: Regular as tolerated PPX: SCDs Dispo: MS for now - upgrade to MS/T+ if clinical status is worsening Admission and Anticipated Discharge Date Admission Date: February 23, 2022 Subjective patient seen and examined, said headache is better Review of Systems Review of Systems: All systems reviewed are negative, apart from the ones contained in the history. Physical Exam Physical Exam: The patient is awake, alert and oriented 3, well developed and well nourished, normocephalic and atraumatic, lying in bed and in no acute distress. HEENT--PERRL, EOMI, mucous membranes and oropharynx mildly dry Neck--supple. No JVD. No bruits. Thyroid normal, trachea midline, no adenopathy. Heart--normal S1 and S2. No murmurs, rubs or gallops. Lungs--clear bilaterally, no respiratory distress, no accessory muscle use. Abdomen--normal bowel sounds and soft. Mild epigastric and left sided abdominal pain Extremities--no cyanosis or clubbing. No edema. Dermatologic--normal skin turgor, normal color, no abnormal lymph nodes, no rash. Neurologic--cranial nerves II through XII grossly intact. Rheumatologic--normal range of motion. Psychiatric--normal affect. Results & Data Results & Data ([facility]) Vital Signs (Past 12 Hours) Vital Signs Temp Pulse Resp BP Pulse Ox O2 Del Method 02/24/22 07:15 98.6 F 77 18 116/65 98 Room Air PG Care Time/CCT Total # of Minutes Spent Total Time Spent with Patient: Total time spent is greater than 50% in coordination of care (as documented) at patient's floor/unit and/or counseling patient: Coding Level of Care Code 34784 Subseq Hosp Care Lvl 2 Diagnoses Headache R51.9 Headache chronicity pattern: acute headache Headache type: unspecified Intractability: intractable Alcohol use Z72.89 Tobacco use Z72.0 Time Spent (min) 35 (1) Headache Headache chronicity pattern: acute headache Headache type: unspecified Intractability: intractable Qualified Code(s): R51.9 - Headache, unspecified
[2022-02-24] MEDS ORDERED: GADOBUTROL 65ML VIAL IV ONE (13:27)
--- NOTE | 2022-02-24 13:43 | Magnetic Resonance Report ---
MRI OF THE BRAIN COMBO CLINICAL HISTORY: Headache. Meningitis. COMPARISON STUDY: MRI of the brain dated 02/23/2022. TECHNIQUE: MRI of the brain was performed utilizing various T1 and T2-weighted sequences in the axial , sagittal, and coronal planes. Contrast-enhanced sequences were acquired following the administratio n of 12 cc of Gadavist. FINDINGS: Brain parenchyma: The brain parenchyma is normal in appearance. There is no hemorrhage or mass effect . There is no restricted diffusion to suggest acute ischemia. No enhancing mass lesion is identified on the postcontrast images. Hough-white matter differentiation is preserved. No extra-axial fluid audrey ection is seen. The cerebellar tonsils are normal in configuration. Ventricles, sulci, and cisterns: Normal in configuration. Pituitary and sella: Unremarkable. Intracranial vasculature: Normal flow voids are maintained at the skull base. Orbits: The bony orbits are grossly intact. Orbital contents are normal in appearance. Sinuses and mastoids: Clear. Calvarium: Unremarkable. Cervical cord: Partially visualized cervical spinal cord is normal in morphology and signal intensity . IMPRESSION: No intracranial abnormality is identified. ACT 112: Negative or not required by law. Electronically signed by: Randal Russell M.D. 02/24/2022 1:42 PM
[2022-02-24] MEDS ORDERED: KETOROLAC TROMETHAMINE 15 MG/ML VIAL IV ONE (19:28)
[2022-02-25] MEDS: cefTRIAXone SODIUM 2,000 MG in DEXTROSE 5% 50 ML IV SCH (01:15)
[2022-02-25] MEDS: dexAMETHasone 10 MG in SYRINGE 0 ML IV SCH ×2 (01:15→07:34)
[2022-02-25] MEDS: ACYCLOVIR SOD 900 MG in DEXTROSE 5% 250 ML IV SCH (06:07)
[2022-02-25 07:46] LABS: Hematocrit (blood only) 36.1 % (34.1-44.9); Hemoglobin 12.1 g/dl (12.0-16.0); Mean Corpuscular Hemoglobin 29.7 pg (25.0-34.0); Mean Corpuscular Hgb Conc 33.5 g/dL (32.0-36.0); Mean Corpuscular Volume 88.5 fL (80.0-100.0); Platelet Count 365 K/uL (130-400); RDW Coefficient of Variation 12.5 % (11.5-14.5); RDW Standard Deviation 40.2 fL (36.4-46.3); Red Blood Count 4.08 M/uL (3.93-5.22); White Blood Count 22.28 K/ul (4.8-10.8)
[2022-02-25 08:11] LABS: Albumin Level 3.3 gm/dl (3.4-5.0); BUN Creatinine Ratio 17.5 (10-20); Bilirubin,Total 0.2 mg/dl (0.2-1.0); C Reactive Protein 3.59 mg/dl (0-0.5); Calcium 8.7 mg/dl (8.5-10.1); Creatinine Clr Calc Pharmacy 118.1 ml/min; Est GFR (African American) 89.4 ml/min; Est GFR (Non-African American) 77.1 ml/min; Potassium 3.7 mmol/L (3.5-5.1); Total Protein 6.8 gm/dl (6.0-8.3)
--- NOTE | 2022-02-25 12:15 | Discharge Summary ---
Date of Service February 25, 2022 Admission HPI Per Admitting Provider This is a 22-year-old female with a history of who presented to [facility] for evaluation of headache and nausea. Patient reports that last week, she did have sinus symptoms that were primarily tender on the left sideshe reports having these every single year, and they typically resolve on their own. Patient reports that beginning on Tuesday of last week (~4 days ago) she went out downtown and consumed a significant amount of alcohol. The following day, she reports consuming consistent amounts of alcohol for about a 12-hour period, but she notes that she did not get intoxicated. The following morning (2 days ago) she reports waking up with a pounding, sharp headache that extended from the front to the back of her head and down her neck. She says she has had 1 headache like this in the past, but never this severe. As the day went on, she progressively began developing worsening nausea with vomiting. She felt like she was unable to keep anything down. She denies any diplopia or visual symptoms. She denies any numbness or tingling's in her upper or lower extremities, denies any weakness. She did try taking Tylenol and acetaminophen without any relief. Because her symptoms continued onward through today, she did decide to come into the ER to be evaluated. She does report intermittent chills over the last couple days, but denies any objective fevers. She denies any muscle aches. She denies any medical conditions. She denies any daily medications. She does have a Kyleena IUD. She is sexually active and endorses a history of Chlamydia infection treated last year. She said she was tested for all STIs, including blood tests, a month ago at [facility]. She has no partners since. Denies genital lesions. She does endorse vaping frequently. Alcohol use as above. Denies any use of recreational drugs. Upon arrival, patient was found to be mildly hypertensive to 141/95 with otherwise normal vital signs. Admission labs demonstrated a white count to 25.4 with appreciable left shift and mild monocytosis, thrombocytosis 430, normal BMP, total protein 8.4. CT-Head STAT-Rad: "Normal non-contrast CT scan of the head." Given ongoing concerns for meningitis, CSF sample was obtained. CSF was clear and colorless without xanthochromia. Leukocytosis to 150 with 40/60 mononuclear:PMN differentiation was found in the CSF with normal glucose. Total protein elevated 66.3. CSF bio fire was negative. CSF Lyme studies are pending. Patient's respiratory swabs revealed negative COVID, influenza, and RSV. Blood cultures and CSF cultures are pending. She was given sodium chloride, obtain sertraline, metoclopramide, diphenhydramine, lorazepam, ceftriaxone, dexamethasone, morphine, and vancomycin. Principal Diagnosis aseptic meningitis Discharge Exam The patient is awake, alert and oriented 3, well developed and well nourished, normocephalic and atraumatic, lying in bed and in no acute distress. HEENT--PERRL, EOMI, mucous membranes and oropharynx mildly dry Neck--supple. No JVD. No bruits. Thyroid normal, trachea midline, no adenopathy. Heart--normal S1 and S2. No murmurs, rubs or gallops. Lungs--clear bilaterally, no respiratory distress, no accessory muscle use. Abdomen--normal bowel sounds and soft. Mild epigastric and left sided abdominal pain Extremities--no cyanosis or clubbing. No edema. Dermatologic--normal skin turgor, normal color, no abnormal lymph nodes, no rash. Neurologic--cranial nerves II through XII grossly intact. Rheumatologic--normal range of motion. Psychiatric--normal affect. Discharge Data Allergies Allergy/AdvReac Type Severity Reaction Status Date / Time No Known Allergies Allergy Unverified 02/23/22 15:12 Consultations 02/23/22 03:24 ED Decision to Admit Stat 02/23/22 11:08 Consult Infectious Diseases Routine Ordered Studies 02/22/22 21:48 CT head/brain wo con Urgent 02/23/22 11:09 MR brain wo con Routine 02/24/22 10:25 MRI Brain [MR brain wo/w con] Routine Hospital Course (1) Headache: This is a 22-year-old female with a history of who presented to [facility] for evaluation of severe headache, nuchal rigidity, recurrent nausea with vomiting, and chills in the setting of recently reported sinus infection, with serum and CSF studies concerning for aseptic meningitis. Suspected Meningitis - Patient reporting approx. 3 days of worsening severe headache with intractable nausea and vomiting, nuchal rigidity, and chills following a recent self-reported sinus infection -Likely aseptic meningitis, likely viral -Headeache has resolved - Work-up as follows: - Leukocytosis to 25 with L shift and monocytosis - CSF: Clear/Colorless/WBC 150 (40/60 mono:PMNs)/Glc nml 66/TP 66.3/BioFire negative (Lyme studies pending) - COVID/RSV/Influenza: Negative - Head CT (STAT-Rad): No acute processes - BCX, CSF-Cx, negative so far - Clinical picture is concerning and most consistent with aseptic meningitis - likely viral in nature. -MRI brain was wnl, no dural enhancements - Biofire negative, apart from Lyme, which is still pending -Will discontinue antibiotics and Acyclovir -Will discharge on PO Doxycycline 100mg for 7 days in case Lyme is eventually positive (2) Alcohol use: - counselled on ETOH (3) Tobacco use: - Vaping cessation counselling will be required once acute issues are resolved Plan Code: Full Diet: Regular as tolerated PPX: SCDs Dispo: MS for now - upgrade to MS/T+ if clinical status is worsening Total Time Total Time Spent Total Time Spent (In Minutes): 35 Discharge Plan Discharge Items Patient Disposition: Home - Self-Care Reason For Visit: SEVERE HEADACHE, POSSIBLE MENINGITIS Discharge Diagnosis: Aseptic meningitis Condition on Discharge: Good Activity: Resume your previous activity Lifting: Gradually increase as tolerated Non-emergency contact: Primary Care Provider Call non-emergency contact if: you have any medication questions [facility]Referrals[facility] [Non-Staff] - (PLEASE CALL [facility] AND FOLLOW UP IN 7-10 DAYS FROM DISCHARGE DATE.) PCP,NO [Primary Care Provider] - Diet: Regular Addtl Attending Provider Instructions: please make appointment to follow up with your regular PCP Pending Studies at Discharge: Yes Studies:: Lyme CSF serology Stand-Alone Forms: My [employer], Smoking Cessation Medications and DC Order Prescriptions: New doxycycline monohydrate 100 mg capsule 100 mg PO BID 7 Days Qty: 14 0RF No Action No Known Home Medications Discharge Orders: Discharge Order (Routine); Ordered 02/25/22 Ordered By: Anibal De La Rosa Admission Data Admit Date/Time: 02/23/22 04:19 Attending Provider: Anibal De La Rosa Admit Provider: Jackson,Oswaldo A. Primary Care Provider: PCP,NO Other Providers: Peter Ridley ; Monico Jack ; Katlyn Benítez ; Fernando Pete I. ; Steven Mendoza II ; Kitty Wagner ; Humberto Mota ; Osmar Salter ; Howard Lopez Other Interventions: Discharge Summary Assessment (RN) Last Done: 02/25/22 12:04 Coding Level of Care Code D/C DAY MANAGEMENT >30 MINS Diagnoses Headache R51.9 Headache chronicity pattern: acute headache Headache type: unspecified Intractability: intractable Alcohol use Z72.89 Tobacco use Z72.0 Time Spent (min) 35
[2022-02-27 20:07] LABS: Lyme IgG Band Pattern CSF DNR; Lyme IgG CSF NO BANDS DETECTED; Lyme IgM Band Pattern CSF DNR; Lyme IgM CSF NO BANDS DETECTED
== END 2022-02-25 12:51 | disposition home or self-care (01) | DRG 99 ==
LOC: ED 21:41 → SUATTDRO 02-23 04:19 → EDINP 02-23 04:19 → 3N 02-23 20:29